=== PATIENT | male | born 1955 | race Caucasian/White ===

== ENCOUNTER 2017-05-06 12:58 | Inpatient (IN) | payer BC ==
[2017-05-06] MEDS: ASPIRIN 325 MG TAB PO (13:44)
[2017-05-06 13:59] LABS: ADD MAN DIFF? NO
[2017-05-06 14:09] LABS: WHITE BLOOD COUNT 5.7 10^3/ul (4.8-10.8)
[2017-05-06 14:09] LABS: BASOPHILS % 0.5 % (0.0-2.0); EOSINOPHILS # 0.3 10^3/ul (0.0-0.5); EOSINOPHILS % 4.7 % (0.0-7.0); HEMATOCRIT 31.5 % (42.0-52.0); LYMPHOCYTES # 1.3 10^3/ul (0.8-2.9); LYMPHOCYTES % 22.4 % (15.0-51.0); MEAN CORPUSCULAR HEMOGLOBIN 31.1 pg (29.0-33.0); MEAN CORPUSCULAR HGB CONC 34.9 g/dl (32.0-37.0); MEAN PLATELET VOLUME 9.1 fl (7.4-10.4); MONOCYTE # 0.4 10^3/ul (0.3-0.9); MONOCYTES % 7.4 % (0.0-11.0); NEUTROPHIL # 3.7 10^3/ul (1.6-7.5); NEUTROPHILS % 64.5 % (39.0-77.0); PLATELET COUNT 268 10^3/UL (140-415); RED BLOOD COUNT 3.54 10^6/ul (4.70-6.10); RED CELL DISTRIBUTION WIDTH 12.1 % (11.5-14.5)
[2017-05-06 14:34] LABS: ALANINE AMINOTRANSFERASE 54 IU/L (13-69); ALBUMIN 4.8 g/dl (3.3-4.9); ALKALINE PHOSPHATASE 74 IU/L (42-121); ANION GAP 17 (8-16); ASPARTATE AMINO TRANSFERASE 41 IU/L (15-46); BILIRUBIN,INDIRECT 0.2 mg/dl (0-1.1); BILIRUBIN,TOTAL 0.2 mg/dl (0.2-1.3); BLOOD UREA NITROGEN 20 mg/dl (7-20); CALCIUM 9.7 mg/dl (8.4-10.2); CARBON DIOXIDE 25 mmol/L (21-31); CHLORIDE 104 mmol/L (97-110); CREATININE 1.21 mg/dl (0.61-1.24); GLUCOSE 197 mg/dl (70-220); POTASSIUM 4.7 mmol/L (3.5-5.1); SODIUM 141 mmol/L (135-144)
[2017-05-06 14:46] LABS: B-TYPE NATRIURETIC PEPTIDE 695 PG/ML (0-125)
[2017-05-06 14:47] LABS: TROPONIN-I < 0.012 ng/ml (0.00-0.12)
[2017-05-06] MEDS: traMADol 50 MG TAB PO ×2 (15:45→21:12)
[2017-05-06] MEDS: GABAPENTIN 300 MG CAP PO ×2 (16:06→21:03)
[2017-05-06] MEDS ORDERED: ONDANSETRON 4 MG INJ IV (17:30)
[2017-05-06] MEDS ORDERED: ACETAMINOPHEN 325 MG TAB PO (17:30)
[2017-05-06] MEDS ORDERED: DEXTROSE 50% 50 ML SYRINGE IV ×2 (19:00)
[2017-05-06] MEDS ORDERED: GLUCOSE GEL 15 GRAM TUBE PO ×2 (19:00)
[2017-05-06] MEDS ORDERED: GLUCAGON 1 MG INJ IM (19:00)
[2017-05-06] MEDS ORDERED: GLUCOSE GEL 15 GRAM TUBE BUCCAL (19:00)
[2017-05-06] MEDS: DULOXETINE 20 MG CAP DR PO (19:32)
[2017-05-06 19:47] LABS: CREATINE KINASE 348 IU/L (23-200)
[2017-05-06 19:57] LABS: CK INDEX 0.7
[2017-05-06 19:59] LABS: CK-MB 2.31 ng/ml (0.0-2.4); TROPONIN-I < 0.012 ng/ml (0.00-0.12)
[2017-05-06] MEDS: INSULIN GLARGINE [LANtus] 3 ML PEN SC (22:23)
[2017-05-06] MEDS: INSULIN ASPART [NOVOLOG] 3 ML PEN SC (22:32)
[2017-05-07] MEDS: ACCU-CHEK XX (02:00)
[2017-05-07 02:24] LABS: CREATINE KINASE 282 IU/L (23-200)
[2017-05-07 02:36] LABS: CK INDEX 0.8
[2017-05-07 02:41] LABS: CK-MB 2.13 ng/ml (0.0-2.4); TROPONIN-I < 0.012 ng/ml (0.00-0.12)
[2017-05-07 06:15] LABS: ADD MAN DIFF? NO
[2017-05-07 07:10] LABS: ALANINE AMINOTRANSFERASE 49 IU/L (13-69); ALBUMIN 3.9 g/dl (3.3-4.9); ALBUMIN/GLOBULIN RATIO 1.34; ALKALINE PHOSPHATASE 56 IU/L (42-121); ANION GAP 14 (8-16); ASPARTATE AMINO TRANSFERASE 31 IU/L (15-46); BILIRUBIN,INDIRECT 0.1 mg/dl (0-1.1); BILIRUBIN,TOTAL 0.1 mg/dl (0.2-1.3); BLOOD UREA NITROGEN 23 mg/dl (7-20); CALCIUM 9.6 mg/dl (8.4-10.2); CARBON DIOXIDE 26 mmol/L (21-31); CHLORIDE 105 mmol/L (97-110); CHOLESTEROL 144 mg/dl (100-200); CREATININE 1.15 mg/dl (0.61-1.24); GLUCOSE 121 mg/dl (70-220); HDL CHOLESTEROL 36 mg/dl (30-78); LDL CHOLESTEROL,CALCULATED 83 mg/dl; POTASSIUM 4.4 mmol/L (3.5-5.1); SODIUM 141 mmol/L (135-144); TOTAL PROTEIN 6.8 g/dl (6.1-8.1); TRIGLYCERIDES 126 mg/dl (0-149)
[2017-05-07 07:11] LABS: C-REACTIVE PROTEIN < 0.5 mg/dl (0.0-0.9)
[2017-05-07] MEDS: INSULIN ASPART [NOVOLOG] 3 ML PEN SC ×2 (07:35)
[2017-05-07 07:47] LABS: WHITE BLOOD COUNT 4.4 10^3/ul (4.8-10.8)
[2017-05-07 07:47] LABS: BASOPHILS % 0.7 % (0.0-2.0); EOSINOPHILS # 0.3 10^3/ul (0.0-0.5); EOSINOPHILS % 6.4 % (0.0-7.0); HEMATOCRIT 27.8 % (42.0-52.0); HEMOGLOBIN 9.7 g/dl (14.0-18.0); LYMPHOCYTES # 1.3 10^3/ul (0.8-2.9); MEAN CORPUSCULAR HEMOGLOBIN 31.2 pg (29.0-33.0); MEAN CORPUSCULAR HGB CONC 34.9 g/dl (32.0-37.0); MEAN CORPUSCULAR VOLUME 89.4 fl (82.0-101.0); MEAN PLATELET VOLUME 9.2 fl (7.4-10.4); MONOCYTE # 0.5 10^3/ul (0.3-0.9); MONOCYTES % 10.3 % (0.0-11.0); NEUTROPHIL # 2.3 10^3/ul (1.6-7.5); NEUTROPHILS % 53.4 % (39.0-77.0); PLATELET COUNT 238 10^3/UL (140-415); RED BLOOD COUNT 3.11 10^6/ul (4.70-6.10); RED CELL DISTRIBUTION WIDTH 12.2 % (11.5-14.5)
[2017-05-07] MEDS: ASPIRIN (EC) 81 MG TAB PO (10:42)
[2017-05-07] MEDS: GABAPENTIN 300 MG CAP PO ×2 (10:43→14:28)
[2017-05-07] MEDS: ENOXAPARIN 30 MG/0.3 ML SYG SC (10:53)
[2017-05-07 11:16] LABS: ERYTHROCYTE SEDIMENTATION RATE 55 mm/Hr (0-20)
[2017-05-07] MEDS: traMADol 50 MG TAB PO (12:40)
[2017-05-07] MEDS: DULOXETINE 20 MG CAP DR PO (12:42)
== END 2017-05-07 18:15 | disposition home or self-care (01) | DRG 74 ==
LOC: E/R 12:58 → MS3 17:15
DX: E11.40 Type 2 diabetes mellitus with diabetic neuropathy, unspecified (principal); E11.22 Type 2 diabetes mellitus with diabetic chronic kidney disease; I12.9 Hypertensive chronic kidney disease with stage 1 through stage 4 chronic kidney disease, or unspecified chronic kidney disease; N18.2 Chronic kidney disease, stage 2 (mild); I25.10 Atherosclerotic heart disease of native coronary artery without angina pectoris; Z95.1 Presence of aortocoronary bypass graft; Z95.2 Presence of prosthetic heart valve; E11.43 Type 2 diabetes mellitus with diabetic autonomic (poly)neuropathy; K31.84 Gastroparesis; Z79.82 Long term (current) use of aspirin; Z79.4 Long term (current) use of insulin
CPT/HCPCS: 36415; 71045; 73130; 80053; 80061; 82550; 82553; 82962; 83880; 84443; 84484; 85025; 85651; 86140; 93005; 93306; 99285-25